=== PATIENT | female | born 1990 | race Caucasian/White ===

== ENCOUNTER 2017-08-04 21:53 | Outpatient (CLI) | payer OTHER ==
[2017-08-05 01:01] VITALS: BP 119/82
--- NOTE | 2017-08-05 01:37 | Ultrasound Preliminary Report ---
Exam: US OB Limited IMPRESSION: 1. Soriano live intrauterine with gestational age 20 weeks 1 day based on established OMI . 2. No evidence of placental abruption or previa. 3. The cervix is closed measuring 3 cm in length. [facility] SITE ID: [id number]
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
== END 2017-08-04 23:55 | disposition home or self-care (01) ==
LOC: WFO 21:53 → FBP 22:02 → WFO 23:55
PROVIDERS: ATTEND Obstetrics & Gynecology
DX: O26.852 Spotting complicating pregnancy, second trimester (principal); V49.00XA Driver injured in collision with unspecified motor vehicles in nontraffic accident, initial encounter; O99.89 Other specified diseases and conditions complicating pregnancy, childbirth and the puerperium; R00.0 Tachycardia, unspecified; Z3A.20 20 weeks gestation of pregnancy
CPT/HCPCS: 36415; 76815; 86850; 86900; 86901; 99212